=== PATIENT | male | born 1945 | race Caucasian/White ===

== ENCOUNTER 2018-09-27 09:36 | Inpatient (IN) ==
[2018-09-27] MEDS ORDERED: SODIUM CHLORIDE 0.9% 1,000 ML IV STA (10:07)
[2018-09-27 10:31] LABS: Basophils # 0.1 10*3/uL (0.0-0.2); Basophils % 0.6 % (0.0-0.8); Eosinophils % 0.1 % (0.00-10.9); Hematocrit 41.7 VOL% (42.0-52.0); Hemoglobin 13.8 GM/DL (14.0-18.0); Immature Granulocytes % 1.8 %; Immature Granulocytes Absolute 0.19 #; Lymphocytes # 0.5 10*3/uL (1.4-4.0); Lymphocytes % 4.8 % (21.2-54.2); Mean Corpuscular HGB Conc 33.1 GM/DL (32-36); Mean Corpuscular Volume 84.9 FL (87-102); Mean Platelet Volume 10.9 FL (9.6-12.0); Monocytes % 11.9 % (1.7-12.7); NRBC # 0.02 10*3/uL; Neutrophils % 80.8 % (38.7-73.9); Platelet Count 296 T/CUMM (130-400); Red Blood Count 4.91 MC/CUMM (3.8-5.5); Red Cell Distribution Width 13.2 % (9.3-17.3); White Blood Count 10.5 T/CUMM (4-12)
[2018-09-27 10:51] LABS: Alanine Aminotransferase 17 U/L (16-61); Albumin 2.6 G/DL (3.4-5.0); Alkaline Phosphatase 77 U/L (45-117); Aspartate Amino Transferase 10 U/L (0-37); Blood Urea Nitrogen 83 MG/DL (7-18); Calcium 8.4 MG/DL (8.5-10.1); Osmolality,Calculated 302.4 MOS/KG (273-304); Total Protein 6.1 G/DL (6.4-8.3)
[2018-09-27 10:53] LABS: Glucose 544 MG/DL (74-106)
[2018-09-27 11:05] LABS: Band Neutrophils 2 % (0-10); Lymphocytes 2 % (20-55); Platelet Estimate Adequate; Segmented Neutrophils 86 % (50-85); Total Cells Counted 100
[2018-09-27] MEDS ORDERED: INSULIN REGULAR 100 UNIT/ML IV ONE ×2 (11:38→12:09)
[2018-09-27] MEDS ORDERED: ONDANSETRON 4 MG/2 ML VIAL ONE (11:39)
[2018-09-27] MEDS ORDERED: INSULIN REGULAR 100 UNIT/ML ONE (11:41)
[2018-09-27] MEDS ORDERED: ONDANSETRON 4 MG/2 ML VIAL IV STA (11:46)
[2018-09-27] MEDS ORDERED: ZALEPLON 5 MG CAPSULE PO PRN (12:00)
[2018-09-27] MEDS ORDERED: GLUCAGON 1 MG VIAL IM PRN (12:00)
[2018-09-27] MEDS ORDERED: diphenhydrAMINE CAP 25 MG CAPSULE PO PRN (12:00)
[2018-09-27] MEDS ORDERED: guaiFENesin/DM ER 600-30 MG TABLET PO PRN (12:00)
[2018-09-27] MEDS ORDERED: PROMETHAZINE 25 MG/1 ML VIAL IM PRN (12:00)
[2018-09-27] MEDS ORDERED: ACETAMINOPHEN 325 MG TABLET PO PRN (12:00)
[2018-09-27] MEDS ORDERED: DEXTROSE 50% 25 GM/50 ML VIAL IV PRN ×2 (12:00→12:09)
[2018-09-27] MEDS ORDERED: SODIUM CHLORIDE 0.9% 1,000 ML IV SCH ×3 (12:00→17:10)
[2018-09-27] MEDS ORDERED: SODIUM CHLORIDE 0.9% 1,900 ML IV ONE (12:00)
[2018-09-27] MEDS ORDERED: ONDANSETRON 4 MG/2 ML VIAL IV PRN (12:00)
[2018-09-27] MEDS ORDERED: SODIUM PHOSPHATE INJ 15.9 MMOL in SODIUM CHLORIDE 0.9% 250 ML IV PRN (12:09)
[2018-09-27] MEDS ORDERED: MAGNESIUM SULF RIDER 2 GM in PREMIX 1 EACH IV PRN (12:09)
[2018-09-27] MEDS ORDERED: SODIUM CHLORIDE 0.9% 1,000 ML IV ONE (12:09)
[2018-09-27] MEDS ORDERED: SODIUM BICARB INJ 100 MEQ in STERILE WATER INJ 400 ML IV PRN (12:09)
[2018-09-27] MEDS ORDERED: MAGNESIUM SULF RIDER 4 GM in PREMIX 1 EACH IV PRN (12:09)
[2018-09-27] MEDS ORDERED: INSULIN REGULAR DRIP 100 ML IV SCH (12:30)
[2018-09-27] MEDS: HEPARIN 5,000 UNIT/1 ML VIAL SUBCUT SCH ×2 (12:58→20:42)
[2018-09-27] MEDS ORDERED: VANCOMYCIN INJ 1,000 MG in SODIUM CHLORIDE 0.9% 250 ML IV SCH (13:00)
[2018-09-27 13:35] LABS: Calcium 7.2 MG/DL (8.5-10.1); Osmolality,Calculated 308.8 MOS/KG (273-304)
[2018-09-27 13:49] LABS: Apearance,Urine CLEAR (Clear); Bacteria,Urine Occasional /HPF (Few); Bilirubin,Urine Negative (Negative); Blood, Urine Small mg/dL (Negative); Glucose,Urine (UA) >=500 mg/dL (Negative); Ketones,Urine 80 mg/dL (Negative); Mucus,Urine Occasional /LPF (Occasional); Nitrite,Urine Negative (Negative); Protein,Urine Negative; RBC,Urine 1 /HPF (0-4); Urine Color Yellow (Yellow); Urine Urobilinogen < 2.0 EU/DL (<2.0); WBC,Urine 2 /HPF (0-6)
[2018-09-27 14:26] LABS: ABG Base Excess -21.8 MMOL/L (-2.5-2.5); ABG Oxygen Saturation 98.1 % (95-100); ABG TCO2 4.7 MMOL/L (23-27)
[2018-09-27 14:29] LABS: ABG PCO2 12.5 MM HG (35-48)
[2018-09-27 14:31] LABS: Glucose Heart Surgery 342 MG/DL (74-106)
[2018-09-27 16:46] LABS: Calcium 6.7 MG/DL (8.5-10.1)
[2018-09-27] MEDS: POTASSIUM CHLORIDE 20 MEQ TABLET PO SCH ×2 (17:47→20:42)
[2018-09-27] MEDS: POTASSIUM CHLORIDE INJ 10 MEQ in DEXTROSE 5% NACL 0.9% 1,000 ML IV SCH (19:00)
[2018-09-27 20:31] LABS: Calcium 6.9 MG/DL (8.5-10.1); Osmolality,Calculated 286.5 MOS/KG (273-304)
[2018-09-27] MEDS: DOCUSATE SODIUM 100 MG CAPSULE PO SCH (20:42)
[2018-09-28 01:17] LABS: Calcium 6.9 MG/DL (8.5-10.1); Osmolality,Calculated 287.1 MOS/KG (273-304)
[2018-09-28] MEDS: POTASSIUM CHLORIDE 20 MEQ TABLET PO SCH ×3 (01:38→12:33)
[2018-09-28] MEDS: POTASSIUM CHLORIDE INJ 10 MEQ in DEXTROSE 5% NACL 0.9% 1,000 ML IV SCH ×2 (02:04→09:00)
[2018-09-28] MEDS: HEPARIN 5,000 UNIT/1 ML VIAL SUBCUT SCH ×3 (04:08→21:09)
[2018-09-28] MEDS ORDERED: SODIUM CHLORIDE 0.45% 1,000 ML IV SCH (05:10)
[2018-09-28 05:21] LABS: Basophils % 0.2 % (0.0-0.8); Eosinophils % 0.1 % (0.00-10.9); Hematocrit 31.8 VOL% (42.0-52.0); Hemoglobin 11.3 GM/DL (14.0-18.0); Immature Granulocytes % 0.8 %; Immature Granulocytes Absolute 0.08 #; Lymphocytes # 0.9 10*3/uL (1.4-4.0); Lymphocytes % 8.1 % (21.2-54.2); Mean Corpuscular HGB Conc 35.5 GM/DL (32-36); Mean Corpuscular Volume 80.3 FL (87-102); Mean Platelet Volume 10.7 FL (9.6-12.0); Monocytes % 11.3 % (1.7-12.7); Neutrophils % 79.5 % (38.7-73.9); Platelet Count 213 T/CUMM (130-400); Red Blood Count 3.96 MC/CUMM (3.8-5.5); Red Cell Distribution Width 13.1 % (9.3-17.3); White Blood Count 10.5 T/CUMM (4-12)
[2018-09-28 05:53] LABS: Band Neutrophils 5 % (0-10); Lymphocytes 13 % (20-55); Segmented Neutrophils 72 % (50-85)
[2018-09-28 05:54] LABS: Platelet Estimate Adequate; Total Cells Counted 100
[2018-09-28 06:07] LABS: Albumin 2.1 G/DL (3.4-5.0); Bilirubin,Total 0.9 MG/DL (0.2-1.0); Calcium 7.2 MG/DL (8.5-10.1); Risk Ratio 2.49; Thyroid Stimulating Hormone 0.129 uIU/ml (0.358-3.74); Total Protein 4.6 G/DL (6.4-8.3)
[2018-09-28] MEDS: POTASSIUM CHLORIDE RIDER 10 MEQ in PREMIX 1 EACH IV PRN ×2 (07:25→09:27)
[2018-09-28] MEDS ORDERED: BISMUTH SUBSALICYLATE 30 ML/524 MG 240 ML/BOTTLE PO PRN (08:16)
[2018-09-28] MEDS: FOLIC ACID 1 MG TABLET PO SCH (08:23)
[2018-09-28] MEDS: DOCUSATE SODIUM 100 MG CAPSULE PO SCH ×2 (08:23→21:08)
[2018-09-28] MEDS: LISINOPRIL 10 MG TABLET PO SCH (08:24)
[2018-09-28] MEDS: PANTOPRAZOLE 40 MG TABLET PO SCH (08:25)
[2018-09-28] MEDS: INSULIN NPH 100 UNIT/ML SUBCUT SCH ×2 (08:26→21:08)
[2018-09-28 08:40] LABS: Calcium 6.8 MG/DL (8.5-10.1); Osmolality,Calculated 283.7 MOS/KG (273-304)
[2018-09-28] MEDS ORDERED: sitaGLIPtin 100 MG TABLET PO SCH (09:00)
[2018-09-28] MEDS ORDERED: CANAGLIFLOZIN 100 MG PO SCH (09:00)
[2018-09-28] MEDS: DEXTROSE 5% LACTATED RINGERS 1,000 ML IV SCH (09:53)
[2018-09-28] MEDS: VANCOMYCIN INJ 1,000 MG in SODIUM CHLORIDE 0.9% 250 ML IV SCH ×2 (11:01→23:31)
[2018-09-28] MEDS: INSULIN LISPRO 100 UNIT/ML SUBCUT SCH ×3 (12:31→21:09)
[2018-09-28] MEDS: SIMVASTATIN 10 MG TABLET PO SCH (21:08)
[2018-09-29] MEDS: DEXTROSE 5% LACTATED RINGERS 1,000 ML IV SCH ×2 (03:02→20:02)
[2018-09-29 04:55] LABS: Basophils % 0.1 % (0.0-0.8); Eosinophils # 0.1 10*3/uL (0.0-0.87); Eosinophils % 0.6 % (0.00-10.9); Hematocrit 25.7 VOL% (42.0-52.0); Hemoglobin 8.9 GM/DL (14.0-18.0); Immature Granulocytes % 0.9 %; Immature Granulocytes Absolute 0.09 #; Lymphocytes % 10.2 % (21.2-54.2); Mean Corpuscular HGB Conc 34.6 GM/DL (32-36); Mean Corpuscular Volume 80.8 FL (87-102); Mean Platelet Volume 9.7 FL (9.6-12.0); Monocytes % 13.1 % (1.7-12.7); Neutrophils % 75.1 % (38.7-73.9); Platelet Count 147 T/CUMM (130-400); Red Blood Count 3.18 MC/CUMM (3.8-5.5); Red Cell Distribution Width 13.3 % (9.3-17.3); White Blood Count 9.8 T/CUMM (4-12)
[2018-09-29] MEDS: HEPARIN 5,000 UNIT/1 ML VIAL SUBCUT SCH ×3 (05:05→21:19)
[2018-09-29 05:25] LABS: Albumin 1.8 G/DL (3.4-5.0); Calcium 7.1 MG/DL (8.5-10.1); Osmolality,Calculated 277.7 MOS/KG (273-304); Total Protein 4.1 G/DL (6.4-8.3)
[2018-09-29 05:42] LABS: Anisocytosis Slight; Hypersegmented Neutrophil Few; Lymphocytes 17 % (20-55); Microcytosis 2+; Segmented Neutrophils 76 % (50-85); Total Cells Counted 100
[2018-09-29 05:43] LABS: Platelet Estimate Normal
[2018-09-29] MEDS ORDERED: SODIUM PHOSPHATE INJ 30 MMOL in SODIUM CHLORIDE 0.9% 250 ML IV ONE (08:00)
[2018-09-29] MEDS: FOLIC ACID 1 MG TABLET PO SCH (08:36)
[2018-09-29] MEDS: DOCUSATE SODIUM 100 MG CAPSULE PO SCH ×2 (08:36→21:19)
[2018-09-29] MEDS: PANTOPRAZOLE 40 MG TABLET PO SCH ×2 (08:36→21:29)
[2018-09-29] MEDS: INSULIN NPH 100 UNIT/ML SUBCUT SCH ×2 (08:36→21:28)
[2018-09-29] MEDS: LISINOPRIL 10 MG TABLET PO SCH (08:37)
[2018-09-29] MEDS: INSULIN LISPRO 100 UNIT/ML SUBCUT SCH ×4 (08:39→21:20)
[2018-09-29] MEDS ORDERED: SUCRALFATE 1 GM TABLET PO SCH (11:30)
[2018-09-29] MEDS ORDERED: BISMUTH SUBSALICYLATE 30 ML/524 MG 240 ML/BOTTLE PO SCH (21:00)
[2018-09-29] MEDS: SIMVASTATIN 10 MG TABLET PO SCH (21:19)
[2018-09-30] MEDS: HEPARIN 5,000 UNIT/1 ML VIAL SUBCUT SCH ×3 (04:31→20:55)
[2018-09-30 04:34] LABS: Basophils % 0.1 % (0.0-0.8); Eosinophils % 0.3 % (0.00-10.9); Hematocrit 24.6 VOL% (42.0-52.0); Hemoglobin 8.6 GM/DL (14.0-18.0); Immature Granulocytes % 1.2 %; Immature Granulocytes Absolute 0.12 #; Lymphocytes # 0.8 10*3/uL (1.4-4.0); Lymphocytes % 7.7 % (21.2-54.2); Mean Corpuscular Volume 80.9 FL (87-102); Mean Platelet Volume 10.3 FL (9.6-12.0); Monocytes % 10.9 % (1.7-12.7); Neutrophils % 79.8 % (38.7-73.9); Platelet Count 144 T/CUMM (130-400); Red Blood Count 3.04 MC/CUMM (3.8-5.5); Red Cell Distribution Width 13.5 % (9.3-17.3); White Blood Count 10.4 T/CUMM (4-12)
[2018-09-30 04:52] LABS: Albumin 1.7 G/DL (3.4-5.0); Bilirubin,Total 0.7 MG/DL (0.2-1.0); Calcium 7.6 MG/DL (8.5-10.1); Osmolality,Calculated 279.1 MOS/KG (273-304); Total Protein 4.4 G/DL (6.4-8.3)
[2018-09-30 05:06] LABS: Anisocytosis 1+; Band Neutrophils 1 % (0-10); Eosinophils 1 % (0-10); Lymphocytes 10 % (20-55); Macrocytosis 1+; Platelet Estimate Decreased; Segmented Neutrophils 76 % (50-85); Total Cells Counted 100
[2018-09-30] MEDS ORDERED: POTASSIUM PHOSPHATE 30 MMOL in SODIUM CHLORIDE 0.9% 250 ML IV ONE (08:00)
[2018-09-30] MEDS ORDERED: PROPOFOL 200 MG/20 ML VIAL IV ONE (09:00)
[2018-09-30] MEDS ORDERED: LIDOCAINE 2% 5 ML VIAL ONE (09:00)
[2018-09-30] MEDS: PANTOPRAZOLE 40 MG TABLET PO SCH ×2 (10:12→20:57)
[2018-09-30] MEDS: DOCUSATE SODIUM 100 MG CAPSULE PO SCH ×2 (10:12→20:56)
[2018-09-30] MEDS: FOLIC ACID 1 MG TABLET PO SCH (10:12)
[2018-09-30] MEDS: LISINOPRIL 10 MG TABLET PO SCH (10:12)
[2018-09-30] MEDS: INSULIN LISPRO 100 UNIT/ML SUBCUT SCH ×4 (11:20→20:42)
[2018-09-30] MEDS: INSULIN NPH 100 UNIT/ML SUBCUT SCH ×2 (13:41→20:57)
[2018-09-30] MEDS: METOCLOPRAMIDE 10 MG/10 ML UDCUP PO SCH ×3 (13:52→20:56)
[2018-09-30 16:05] LABS: Apearance,Urine CLEAR (Clear); Bilirubin,Urine Negative (Negative); Blood, Urine Small mg/dL (Negative); Glucose,Urine (UA) >=500 mg/dL (Negative); Ketones,Urine 80 mg/dL (Negative); Mucus,Urine Occasional /LPF (Occasional); Nitrite,Urine Negative (Negative); Protein,Urine Negative; RBC,Urine 1 /HPF (0-4); Squamous Epithelial Cell,Urine Occasional /HPF (0-10); Urine Color Amber (Yellow); Urine Specific Gravity 1.017 (1.001-1.035); Urine Urobilinogen < 2.0 EU/DL (0.2-1.0); WBC,Urine 13 /HPF (0-6)
[2018-09-30] MEDS: DEXTROSE 5% LACTATED RINGERS 1,000 ML IV SCH (19:15)
[2018-09-30] MEDS: SIMVASTATIN 10 MG TABLET PO SCH (20:57)
[2018-10-01] MEDS: HEPARIN 5,000 UNIT/1 ML VIAL SUBCUT SCH ×3 (05:42→20:56)
[2018-10-01 06:34] LABS: Basophils % 0.2 % (0.0-0.8); Eosinophils % 0.2 % (0.00-10.9); Hematocrit 25.3 VOL% (42.0-52.0); Hemoglobin 8.6 GM/DL (14.0-18.0); Immature Granulocytes % 1.1 %; Immature Granulocytes Absolute 0.17 #; Lymphocytes # 0.9 10*3/uL (1.4-4.0); Lymphocytes % 5.8 % (21.2-54.2); Mean Platelet Volume 11.3 FL (9.6-12.0); Monocytes % 8.4 % (1.7-12.7); Neutrophils % 84.3 % (38.7-73.9); Platelet Count 117 T/CUMM (130-400); Red Blood Count 3.05 MC/CUMM (3.8-5.5); Red Cell Distribution Width 13.5 % (9.3-17.3); White Blood Count 15.1 T/CUMM (4-12)
[2018-10-01 07:08] LABS: Albumin 1.7 G/DL (3.4-5.0); Bilirubin,Total 0.9 MG/DL (0.2-1.0); Calcium 7.8 MG/DL (8.5-10.1); Osmolality,Calculated 278.7 MOS/KG (273-304); Total Protein 4.8 G/DL (6.4-8.3)
[2018-10-01 07:56] LABS: Band Neutrophils 2 % (0-10); Eosinophils 1 % (0-10); Hypochromasia Slight; Lymphocytes 5 % (20-55); Platelet Estimate Adequate; Segmented Neutrophils 85 % (50-85); Total Cells Counted 100
[2018-10-01 07:57] LABS: Microcytosis Slight
[2018-10-01] MEDS: INSULIN LISPRO 100 UNIT/ML SUBCUT SCH ×4 (08:14→20:56)
[2018-10-01] MEDS: INSULIN NPH 100 UNIT/ML SUBCUT SCH ×2 (08:14→20:56)
[2018-10-01] MEDS: PANTOPRAZOLE 40 MG TABLET PO SCH ×2 (08:15→20:52)
[2018-10-01] MEDS: DOCUSATE SODIUM 100 MG CAPSULE PO SCH ×2 (08:15→20:55)
[2018-10-01] MEDS: FOLIC ACID 1 MG TABLET PO SCH (08:15)
[2018-10-01] MEDS: LISINOPRIL 10 MG TABLET PO SCH (08:15)
[2018-10-01] MEDS: METOCLOPRAMIDE 10 MG/10 ML UDCUP PO SCH ×4 (08:15→20:52)
[2018-10-01] MEDS: DEXTROSE 5% LACTATED RINGERS 1,000 ML IV SCH (09:34)
[2018-10-01] MEDS: CIPROFLOXACIN INJ 400 MG in PREMIX 1 EACH IV SCH ×2 (16:00→20:47)
[2018-10-01] MEDS: SIMVASTATIN 10 MG TABLET PO SCH (20:55)
[2018-10-02] MEDS: DEXTROSE 5% LACTATED RINGERS 1,000 ML IV SCH ×2 (00:01→16:41)
[2018-10-02] MEDS: HEPARIN 5,000 UNIT/1 ML VIAL SUBCUT SCH ×3 (05:11→20:53)
[2018-10-02 05:27] LABS: Basophils % 0.1 % (0.0-0.8); Eosinophils # 0.1 10*3/uL (0.0-0.87); Eosinophils % 0.6 % (0.00-10.9); Hematocrit 22.4 VOL% (42.0-52.0); Hemoglobin 7.6 GM/DL (14.0-18.0); Immature Granulocytes % 1.2 %; Immature Granulocytes Absolute 0.16 #; Lymphocytes # 1.1 10*3/uL (1.4-4.0); Lymphocytes % 7.9 % (21.2-54.2); Mean Corpuscular HGB Conc 33.9 GM/DL (32-36); Mean Corpuscular Volume 83.9 FL (87-102); Mean Platelet Volume 10.5 FL (9.6-12.0); Monocytes % 9.9 % (1.7-12.7); Neutrophils % 80.3 % (38.7-73.9); Platelet Count 139 T/CUMM (130-400); Red Blood Count 2.67 MC/CUMM (3.8-5.5); Red Cell Distribution Width 13.3 % (9.3-17.3); White Blood Count 13.5 T/CUMM (4-12)
[2018-10-02 06:00] LABS: Albumin 1.6 G/DL (3.4-5.0); Bilirubin,Total 1.1 MG/DL (0.2-1.0); Calcium 7.9 MG/DL (8.5-10.1); Osmolality,Calculated 278.3 MOS/KG (273-304); Total Protein 4.4 G/DL (6.4-8.3)
[2018-10-02 07:10] LABS: Eosinophils 1 % (0-10); Hypochromasia Slight; Lymphocytes 9 % (20-55); Microcytosis 1+; Platelet Estimate Normal; Segmented Neutrophils 81 % (50-85); Total Cells Counted 100
[2018-10-02] MEDS: CIPROFLOXACIN INJ 400 MG in PREMIX 1 EACH IV SCH ×2 (09:02→20:54)
[2018-10-02] MEDS: METOCLOPRAMIDE 10 MG/10 ML UDCUP PO SCH ×4 (09:02→20:53)
[2018-10-02] MEDS: INSULIN NPH 100 UNIT/ML SUBCUT SCH ×2 (09:02→20:53)
[2018-10-02] MEDS: INSULIN LISPRO 100 UNIT/ML SUBCUT SCH ×4 (09:02→20:53)
[2018-10-02] MEDS: FOLIC ACID 1 MG TABLET PO SCH (09:03)
[2018-10-02] MEDS: LISINOPRIL 10 MG TABLET PO SCH (09:03)
[2018-10-02] MEDS: DOCUSATE SODIUM 100 MG CAPSULE PO SCH ×3 (09:03→20:52)
[2018-10-02] MEDS: PANTOPRAZOLE 40 MG TABLET PO SCH ×2 (09:03→20:52)
[2018-10-02] MEDS: POTASSIUM CHLORIDE RIDER 10 MEQ in PREMIX 1 EACH IV PRN ×4 (09:20→13:45)
[2018-10-02] MEDS ORDERED: SODIUM CHLORIDE 0.9% 1,000 ML IV PRN (11:08)
[2018-10-02] MEDS: SIMVASTATIN 10 MG TABLET PO SCH (20:52)
[2018-10-03] MEDS: DEXTROSE 5% LACTATED RINGERS 1,000 ML IV SCH ×2 (01:20→06:02)
[2018-10-03 03:58] LABS: Basophils % 0.4 % (0.0-0.8); Eosinophils % 0.5 % (0.00-10.9); Hematocrit 30.3 VOL% (42.0-52.0); Immature Granulocytes % 1.3 %; Immature Granulocytes Absolute 0.11 #; Lymphocytes # 1.1 10*3/uL (1.4-4.0); Lymphocytes % 12.8 % (21.2-54.2); Mean Corpuscular HGB Conc 33.3 GM/DL (32-36); Mean Corpuscular Volume 84.6 FL (87-102); Mean Platelet Volume 9.8 FL (9.6-12.0); Platelet Count 170 T/CUMM (130-400); Red Blood Count 3.58 MC/CUMM (3.8-5.5); Red Cell Distribution Width 13.3 % (9.3-17.3); White Blood Count 8.5 T/CUMM (4-12)
[2018-10-03 04:04] LABS: Hemoglobin 10.1 GM/DL (14.0-18.0)
[2018-10-03 04:16] LABS: Calcium 8.3 MG/DL (8.5-10.1); Osmolality,Calculated 278.3 MOS/KG (273-304)
[2018-10-03] MEDS: HEPARIN 5,000 UNIT/1 ML VIAL SUBCUT SCH (04:37)
[2018-10-03] MEDS: CIPROFLOXACIN INJ 400 MG in PREMIX 1 EACH IV SCH (11:04)
[2018-10-03] MEDS: DOCUSATE SODIUM 100 MG CAPSULE PO SCH (11:05)
[2018-10-03] MEDS: FOLIC ACID 1 MG TABLET PO SCH (11:05)
[2018-10-03] MEDS: LISINOPRIL 10 MG TABLET PO SCH (11:05)
[2018-10-03] MEDS: METOCLOPRAMIDE 10 MG/10 ML UDCUP PO SCH ×2 (11:06→12:15)
[2018-10-03] MEDS: INSULIN LISPRO 100 UNIT/ML SUBCUT SCH ×2 (11:07→12:14)
[2018-10-03] MEDS: INSULIN NPH 100 UNIT/ML SUBCUT SCH (11:09)
[2018-10-03] MEDS: PANTOPRAZOLE 40 MG TABLET PO SCH (11:13)
[2018-10-03 12:29] VITALS: BP 118/58
== END 2018-10-03 13:22 | disposition home or self-care (01) | DRG 637 ==
LOC: N.ED 09:36 → N.EDINP 11:37 → SUATTDRO 11:37 → N.CC 12:30 → N.4E 09-28 18:02
PROVIDERS: ADMIT Internal Medicine; ATTEND Internal Medicine